=== PATIENT | female | born 1980 | race Caucasian/White ===

== ENCOUNTER 2021-08-14 08:11 | Day surgery (SDC) | payer OTHER ==
[~2021-08-14] VITALS: Ht 188 cm; Wt 65.6 kg
[~2021-08-14 08:11] MED LIST: AMITIZA8 MCG PO; CONCERTA36 MG PO; DESYREL 50MG50 MG PO; WELLBUTRIN SR150 M1 PO
[2021-08-14 09:24] VITALS: BP 108/81; PULSE 70; TEMP 97.7
[2021-08-14 10:15] VITALS: BP 115/74; PULSE 72; TEMP 97.7
--- NOTE | 2021-08-14 10:15 | NUR ---
1015 Pt returns from endo procedure via cart and RN assist to [facility] [place] [facility]. Pt ambulates from cart to recliner with RN assist. Monitors on and alarms set. Call light within reach. Report received from ANGELA Khalil. Pt alert and oriented. Pt requests coffee and muffin. Pt denies any pain or nausea. Pt's present in room. 1025 Pt taking food and drink well. No complications noted. 1053 Discharge instructions given to pt and . All questions answered to their satisfaction. Handed to pt are a thank you card and discharge information. 1058 Pt transferred out of the hospital via wheelchair and Abdirahman assist, to private vehicle driven by .
[2021-08-14 10:30] VITALS: BP 117/80; PULSE 65
[2021-08-14 10:45] VITALS: BP 117/95; PULSE 72
== END 2021-08-14 10:58 | disposition home or self-care (01) ==
LOC: SDCO 08:11
DX: K21.9 Gastro-esophageal reflux disease without esophagitis (principal); D64.9 Anemia, unspecified; F90.9 Attention-deficit hyperactivity disorder, unspecified type; Z79.899 Other long term (current) drug therapy; Z90.89 Acquired absence of other organs
CPT/HCPCS: J2704; J7120